=== PATIENT | female | born 1960 | race Caucasian/White ===

== ENCOUNTER 2021-03-15 19:57 | Observation (INO) | payer MEDICARE, MEDICAID, SELFPAY ==
[2021-03-15 20:00] VITALS: BP 160/107; PULSE 60; RESP 18; TEMP 37.1; O2SAT 97; BMI 27.3
[2021-03-15] MEDS: Ondansetron 4 MG/2 ML Vial IV (21:08)
[2021-03-15] MEDS: 0.9% Normal Saline 1,000 ML 1000 ML IV (21:08)
[2021-03-15 21:20] LABS: Absolute Lymphocyte Count 1.28 X10^3/uL (0.83-4.51); Absolute Neutrophil Count 10.6 X10^3/uL (2.0-7.7); Basophil# 0.06 X10^3/uL; Basophil% 0.5 % (0-1); Eosinophil# 0.01 X10^3/uL; Eosinophils% 0.1 % (0-5); Hematocrit 46.8 % (37-47); Hemoglobin 15.4 g/dL (12.0-15.0); Lymphocyte # 1.28 X10^3/ul (0.83-4.51); Lymphocyte % 10.2 % (19-41); Mean Corp Hgb Conc 32.9 g/dL (32-36); Mean Corpuscular Hgb 29.2 pg (27.0-32.0); Mean Corpuscular Volume 88.8 fL (81-99); Mean Platelet Vol. 10.1 fl (6.2-12.0); Monocyte# 0.55 X10^3/uL; Monocyte% 4.4 % (0-10); NRBC Flagged by Analyzer 0 % (0-5); Neutrophil # 10.62 X10^3/uL (2.7-7.7); Neutrophil % 84.1 % (47-70); Platelet Count 303 K/mm3 (150-450); RBC Distribution Width CV 12.6 % (11.6-14.6); RBC Distribution Width SD 41.1 fl (35.1-43.9); Red Blood Count 5.27 M/mm3 (4.2-5.4); White Blood Count 12.6 K/mm3 (4.4-11.0)
[2021-03-15 21:41] LABS: ALB/GLOB Ratio 1.2 RATIO (0.9-2.4); AST(SGOT) 12 U/L (15-37); Alanine Aminotransfer ALT/SGPT 18 U/L (13-56); Albumin, Serum 4.4 g/dL (3.2-5.0); Alkaline Phosphatase 113 U/L (45-117); Anion Gap 8 (5-15); BUN 13 mg/dL (7-18); BUN/Creat Ratio 14.1 RATIO (10-20); Calcium,Total 9.6 mg/dL (8.5-10.1); Chloride 108 mmol/L (98-107); Creatinine, Serum 0.92 mg/dL (0.55-1.02); EST Glomerular Filtration Rate 65 mL/min (>60); Est Glom Filt Rate - Afr Amer 79 mL/min (>60); Estimated Creatinine Clearance 50.15 ml/min; Globulin 3.8 g/dL (2.2-4.2); Glucose 125 mg/dL (74-106); Lipase 96 U/L (73-393); Potassium 3.6 mmol/L (3.5-5.1); Protein, Total 8.2 g/dL (6.4-8.2); Sodium Level 143 mmol/L (136-145)
--- NOTE | 2021-03-15 21:45 | RAD_ITS ---
INDICATION: Pain EXAMINATION/TECHNIQUE: X-RAY - XR Abdomen Series W/ Chest 1 View COMPARISON: None FINDINGS: --Chest: LINES/DEVICES: None. LUNGS: No consolidation, edema or effusion. No pneumothorax. MEDIASTINUM AND CARDIOVASCULAR STRUCTURES: Cardiac silhouette not enlarged. Central airways and mediastinal contour are unremarkable. BONES AND SOFT TISSUES: No acute findings. --Abdomen: BOWEL GAS PATTERN: Non-obstructive. Moderate amount retained stool in colon. FREE AIR: None visualized. ORGANOMEGALY: Not seen. CALCIFICATIONS: No abnormal calcifications observed. BONES AND SOFT TISSUES: No acute findings. RAD/Acute Abdomen Inc Chest IMPRESSION: No acute abnormalities. Moderate amount retained stool in colon. Electronically Signed: Mt Jackson MD at 22:24 EDT Tel , Service support ,
[2021-03-15] MEDS: Metoclopramide 10 MG/2 ML Vial 5 MG IV (22:23)
[2021-03-15] MEDS: Famotidine 200 MG/20 ML MDV 20 MG in 0.9% Normal Saline (Pres. free 8 ML 300 MG IV (22:23)
[2021-03-15 22:27] VITALS: BP 167/98; PULSE 81; RESP 18; O2SAT 98
[2021-03-16] VITALS (8 sets, daily range): BP systolic 143–174; BP diastolic 80–98; PULSE 60–81; RESP 16–18; TEMP 36.8–37.6; O2SAT 96–100; BMI 25.3
--- NOTE | 2021-03-16 00:03 | ED.VIS.GI ---
HPI HPI - GI History of Present Illness Chief Complaint: Nausea/Vomiting Narrative Narrative: Patient presenting for evaluation secondary to nausea and vomiting. Patient states over the course about the last 4 to 6 hours she has had a profuse onset of severe nausea and vomiting. She reports that this coincided with about 1 hour after she ate some coleslaw. She reports some crampy abdominal pain. No diarrhea. No fevers. No sick contacts. Patient denies any underlying history of bowel obstruction in the past, she does have a history of some abdominal surgery. Review of systems otherwise negative. [facility] Medical History High cholesterol HTN (hypertension) Home Medications amlodipine 10 mg PO DAILY 03/15/21 [History Last Taken Unknown] atorvastatin [Lipitor] 80 mg PO DAILY 03/15/21 [History Last Taken Unknown] lisinopril 20 mg PO DAILY 03/15/21 [History Last Taken Unknown] metoprolol succinate [Toprol XL] 100 mg PO DAILY 03/15/21 [History Last Taken Unknown] Allergy/AdvReac Type Severity Reaction Status Date / Time bacitracin AdvReac Rash Verified 03/15/21 20:03 [From Neosporin ([id number])] neomycin AdvReac Rash Verified 03/15/21 20:03 [From Neosporin ([id number])] polymyxin B AdvReac Rash Verified 03/15/21 20:03 [From Neosporin ([id number])] Surgical History Hx of cholecystectomy Social History Smoking Status: Current every day smoker tobacco type: cigarettes ROS ROS ED Constitutional Constitutional ED: Denies chills or fever(s) ENT ENT ED: Denies sore throat Cardiovascular Cardiovascular: Denies chest pain Respiratory/Chest Respiratory/Chest: Denies cough or dyspnea Gastrointestinal Gastrointestinal: Reports abdominal pain, nausea and vomiting Genitourinary Genitourinary ED: Denies dysuria, hematuria or urinary frequency Musculoskeletal Musculoskeletal: Denies myalgias Integumentary Denies rash Neurologic Neurologic: Denies paresthesias or weakness Psychiatric Psychiatric: Denies depression Endocrine Endocrinology: Denies polyuria Hematologic/Lymphatic Hematologic/Lymphatic: Denies easy bleeding or easy bruising Allergic/Immunologic Allergic/Immunologic ED: Denies urticaria EXAM Physical Exam Const Vital Signs: 03/15/21 20:00 03/15/21 22:27 Temperature 98.7 F Temperature Source Oral Pulse Rate 60 81 Respiratory Rate 18 18 Blood Pressure 160/107 H 167/98 H Blood Pressure Mean 124 121 Pulse Ox 97 98 Oxygen Delivery Method Room Air Room Air Positive well nourished and well developed General Appearance ED: well developed and NAD HEENT Reports dry mucous membranes normocephalic and atraumatic Mouth ED: Yes dry mucous membranes Mouth: dry mucous membranes Eyes EOMs intact bilaterally General Eye ED: Negative for pale conjunctiva or scleral icterus Neck no lymphadenopathy and supple Resp normal respiratory effort and clear to auscultation bilaterally Cardio regular rate, regular rhythm, no murmurs and peripheral pulses 2+ throughout GI non-tender, non-distended and no masses GI Narrative: No reproducible tenderness of the abdomen Palpation: soft; Negative for guarding, rigid or rebound tenderness present Back/Spine no CVA tenderness Extremity full ROM General Extremety ED: Negative for edema General Extremity: Negative for edema Neuro moves all extremities and no sensory deficits noted Sensorium / Orientation: alert, oriented to person, oriented to place and oriented to time Motor Exam: strength 5/5 throughout Psych mental status grossly normal Skin Rashes: no rashes MDM MDM MDM Narrative Medical decision making narrative: Patient presented with significant nausea and vomiting. She did state that she was having some yellow-colored emesis and had a history of some abdominal surgeries in the past I performed a abdominal series to rule out obstruction, by my personal interpretation as well as radiology this is negative for obstructive pattern. Patient has a leukocytosis of 12.6. Chemistry shows normal renal function no evidence of elevation of anion gap or acidosis. Lipase was normal. Patient continued to have persistent vomiting despite treatment with Zofran, Reglan, and Pepcid. She was given fluids. Patient requires admission at this point for continued fluids and antiemetics. This likely is from food poisoning. Lab Data Labs: Laboratory Results - last 24 hr 03/15/21 03/15/21 21:10 21:10 WBC 12.6 H RBC 5.27 Hgb 15.4 H Hct 46.8 MCV 88.8 MCH 29.2 MCHC 32.9 RDW Std Deviation 41.1 RDW Coeff of Jose 12.6 Plt Count 303 MPV 10.1 Immature Gran % (Auto) 0.700 Neut % (Auto) 84.1 H Lymph % (Auto) 10.2 L [place] % (Auto) 4.4 Eos % (Auto) 0.1 Baso % (Auto) 0.5 Absolute Neuts (auto) 10.6 H Absolute Lymphs (auto) 1.28 Nucleated RBC % 0 Sodium 143 Potassium 3.6 Chloride 108 H Carbon Dioxide 27.0 Anion Gap 8 BUN 13 Creatinine 0.92 Estim Creat Clear Calc 50.15 Est GFR (MDRD) Af Amer 79 Est GFR (MDRD) Non-Af 65 BUN/Creatinine Ratio 14.1 Glucose 125 H Calcium 9.6 Total Bilirubin 0.40 AST 12 L ALT 18 Alkaline Phosphatase 113 Total Protein 8.2 Albumin 4.4 Globulin 3.8 Albumin/Globulin Ratio 1.2 Lipase 96 Radiography Diagnostic Testing: Radiology Impression Acute Abdomen Series 03/15/21 21:45 IMPRESSION: No acute abnormalities. Moderate amount retained stool in colon. Electronically Signed: Mt Jackson MD at 22:24 EDT Tel , Service support , Discharge Plan Triage Chief Complaint: Nausea/Vomiting ED Provider: Joby Urias Dx/Rx/DC Orders Clinical Impression: Food poisoning, Intractable vomiting Primary Care Provider: NOT,DEFINED
--- NOTE | 2021-03-16 00:17 | PCM.HP.STD ---
HPI - General HPI Narrative FADY MEANS, is a 60 F who presents to the emergency room after acute onset of nausea and vomiting. Onset of symptoms began at 2:00 today after she had consumed old coleslaw at 1:00 PM. She is currently complaining of some mild urinary incontinence with her vomiting spells and is requesting nursing to assist her. No chest pain shortness of breath fevers or chills at this time. KUB reveals moderate amount of stool retained in the colon. CBC shows mild elevation white count otherwise labs are unremarkable. Patient will be admitted for observation overnight with IV fluid hydration and antiemetic medication. [facility] Medical History (Updated 03/16/21 @ 00:[address] Iain Guillen MD) High cholesterol HTN (hypertension) Home Medications amlodipine 10 mg PO DAILY 03/15/21 [History Last Taken Unknown] atorvastatin [Lipitor] 80 mg PO DAILY 03/15/21 [History Last Taken Unknown] lisinopril 20 mg PO DAILY 03/15/21 [History Last Taken Unknown] metoprolol succinate [Toprol XL] 100 mg PO DAILY 03/15/21 [History Last Taken Unknown] Allergy/AdvReac Type Severity Reaction Status Date / Time bacitracin AdvReac Rash Verified 03/15/21 20:03 [From Neosporin ([id number])] neomycin AdvReac Rash Verified 03/15/21 20:03 [From Neosporin ([id number])] polymyxin B AdvReac Rash Verified 03/15/21 20:03 [From Neosporin ([id number])] Surgical History (Updated 03/15/21 @ 20:04 by Millie Iniguez) Hx of cholecystectomy Social History Smoking Status: Current every day smoker tobacco type: cigarettes ROS Constitutional Constitutional: Reports fatigue; Denies fever(s) Eyes Eyes: Denies change in vision ENT HEENT: Denies loss taste/smell Cardiovascular Cardiovascular: Denies chest pain Respiratory/Chest Respiratory/Chest: Denies shortness of breath at rest Gastrointestinal Gastrointestinal: Reports abdominal pain, nausea and vomiting Genitourinary Genitourinary: Reports urinary incontinence and urinary urgency Musculoskeletal Musculoskeletal: Denies back pain Integumentary Integumentary: Denies jaundice Neurologic Neurologic: Denies abnormal speech Psychiatric Psychiatric: Denies anxiety Vital Signs Vital Signs Vital Signs: 03/15/21 20:00 03/15/21 22:27 Temperature 98.7 F Temperature Source Oral Pulse Rate 60 81 Respiratory Rate 18 18 Blood Pressure 160/107 H 167/98 H Blood Pressure Mean 124 121 Pulse Ox 97 98 Oxygen Delivery Method Room Air Room Air Weight Weight: 149 lb 11.102 oz Body Mass Index (BMI) 27.3 Physical Exam Const oriented x3 HEENT normocephalic and head/scalp atraumatic Eyes PERRL Neck supple Lymph Lymphatic: no lymphadenopathy noted Resp normal respiratory effort and clear to auscultation bilaterally Cardio regular rate, regular rhythm, S1 normal heart sound and S2 normal heart sound GI GI Narrative: generalized Palpation: tender Extremity General Extremity: Negative for edema Skin Lesions: no lesions Neuro Neuro Narrative: grossly intact Results Lab / Micro Data Result Diagrams: 03/15/21 21:10 03/15/21 21:10 Labs: Laboratory Results - last 24 hr 03/15/21 03/15/21 21:10 21:10 WBC 12.6 H RBC 5.27 Hgb 15.4 H Hct 46.8 MCV 88.8 MCH 29.2 MCHC 32.9 RDW Std Deviation 41.1 RDW Coeff of Jose 12.6 Plt Count 303 MPV 10.1 Immature Gran % (Auto) 0.700 Neut % (Auto) 84.1 H Lymph % (Auto) 10.[address] [place] % (Auto) 4.4 Eos % (Auto) 0.1 Baso % (Auto) 0.5 Absolute Neuts (auto) 10.6 H Absolute Lymphs (auto) 1.28 Nucleated RBC % 0 Sodium 143 Potassium 3.6 Chloride 108 H Carbon Dioxide 27.0 Anion Gap 8 BUN 13 Creatinine 0.92 Estim Creat Clear Calc 50.15 Est GFR (MDRD) Af Amer 79 Est GFR (MDRD) Non-Af 65 BUN/Creatinine Ratio 14.1 Glucose 125 H Calcium 9.6 Total Bilirubin 0.40 AST 12 L ALT 18 Alkaline Phosphatase 113 Total Protein 8.2 Albumin 4.4 Globulin 3.8 Albumin/Globulin Ratio 1.2 Lipase 96 Radiology Impression Acute Abdomen Series 03/15/21 21:45 IMPRESSION: No acute abnormalities. Moderate amount retained stool in colon. Electronically Signed: Mt Jackson MD at 22:24 EDT Tel , Service support , Assessment & Plan Assessment/Plan (1) Food poisoning: (2) HTN (hypertension): (3) High cholesterol: PLAN: Plan 1. Nausea and vomiting secondary to ingestion of spoiled food?admit patient for observation to general medical floor, Zofran 4 mg IV every 6 hours as needed nausea, IV normal saline at 125 cc/h, repeat CBC CMP in the morning 2. Hypertension?continue home medication 3. Hypercholesterolemia?continue statin medication 4. DVT prophylaxis?low molecular weight heparin Charges/Coding Visit Charges OBSV E&M: 59479 Initial observation care L2
--- NOTE | 2021-03-16 01:28 | ED.RN ---
UPDATED PT'S SISTER YUDITH WITH ADMISSION. [phone]
[2021-03-16] MEDS: 0.9% Normal Saline 1,000 ML 125 ML IV ×3 (02:16→18:19)
[2021-03-16] MEDS: proCHLORPERazine 10 MG/2 ML Vial 5 MG IV (02:16)
[2021-03-16 07:00] LABS: Absolute Lymphocyte Count 1.45 X10^3/uL (0.83-4.51); Absolute Neutrophil Count 10.4 X10^3/uL (2.0-7.7); Basophil# 0.05 X10^3/uL; Basophil% 0.4 % (0-1); Hematocrit 48.2 % (37-47); Hemoglobin 15.9 g/dL (12.0-15.0); Lymphocyte # 1.45 X10^3/ul (0.83-4.51); Lymphocyte % 11.4 % (19-41); Mean Corpuscular Hgb 28.9 pg (27.0-32.0); Mean Corpuscular Volume 87.6 fL (81-99); Mean Platelet Vol. 10.7 fl (6.2-12.0); Monocyte# 0.68 X10^3/uL; Monocyte% 5.4 % (0-10); NRBC Flagged by Analyzer 0 % (0-5); Neutrophil # 10.41 X10^3/uL (2.7-7.7); Neutrophil % 82.2 % (47-70); Platelet Count 312 K/mm3 (150-450); RBC Distribution Width CV 12.4 % (11.6-14.6); RBC Distribution Width SD 40.1 fl (35.1-43.9); White Blood Count 12.7 K/mm3 (4.4-11.0)
[2021-03-16 07:25] LABS: AST(SGOT) 16 U/L (15-37); Alanine Aminotransfer ALT/SGPT 18 U/L (13-56); Albumin, Serum 4.3 g/dL (3.2-5.0); Alkaline Phosphatase 122 U/L (45-117); Anion Gap 9 (5-15); BUN 8 mg/dL (7-18); BUN/Creat Ratio 13.7 RATIO (10-20); Calcium,Total 9.4 mg/dL (8.5-10.1); Chloride 105 mmol/L (98-107); Creatinine, Serum 0.58 mg/dL (0.55-1.02); EST Glomerular Filtration Rate 111 mL/min (>60); Est Glom Filt Rate - Afr Amer 134 mL/min (>60); Estimated Creatinine Clearance 79.54 ml/min; Globulin 4.2 g/dL (2.2-4.2); Glucose 138 mg/dL (74-106); Potassium 3.1 mmol/L (3.5-5.1); Protein, Total 8.5 g/dL (6.4-8.2); Sodium Level 138 mmol/L (136-145)
--- NOTE | 2021-03-16 07:33 | PN.HOSP_ITS ---
Subjective Subjective Patient is a 60-year-old lady with past medical history segment for hypertension dyslipidemia who presented with intractable nausea vomiting. She also did complain of back pain. Imaging studies with acute abdominal series obtained on admission was unremarkable admitted to regular nursing floor for symptomatic man agement Seen this a.m. complains of significant back pain ordered x-rays of the lumbosacral spine Objective Data Objective Data Vital Signs: Vital Signs Temp Pulse Resp BP Pulse Ox 98.3 F 73 18 156/80 H 100 03/16/21 02:00 03/16/21 02:00 03/16/21 02:00 03/16/21 02:19 03/16/21 02:00 Oxygen Delivery Method Room Air Weight: 62.8 kg Body Mass Index (BMI) 25.3 Intake & Output: Intake and Output for Last 24 Hours 03/14/21 03/15/21 03/16/21 23:59 23:59 23:59 Intake Total 1010 / 1010 Balance 1010 / 1010 Lab / Micro Data Result Diagrams: 03/16/21 05:50 03/16/21 05:50 Labs: Laboratory Results - last 24 hr 03/15/21 03/15/21 03/16/21 21:10 21:10 05:50 WBC 12.6 H 12.7 H RBC 5.27 5.50 H Hgb 15.4 H 15.9 H Hct 46.8 48.2 H MCV 88.8 87.6 MCH 29.2 28.9 MCHC 32.9 33.0 RDW Std Deviation 41.1 40.1 RDW Coeff of Jose 12.6 12.4 Plt Count 303 312 MPV 10.1 10.7 Immature Gran % (Auto) 0.700 0.600 Neut % (Auto) 84.1 H 82.2 H Lymph % (Auto) 10.2 L 11.4 L [place] % (Auto) 4.4 5.4 Eos % (Auto) 0.1 0.0 Baso % (Auto) 0.5 0.4 Absolute Neuts (auto) 10.6 H 10.4 H Absolute Lymphs (auto) 1.28 1.45 Nucleated RBC % 0 0 Sodium 143 Potassium 3.6 Chloride 108 H Carbon Dioxide 27.0 Anion Gap 8 BUN 13 Creatinine 0.92 Estim Creat Clear Calc 50.15 Est GFR (MDRD) Af Amer 79 Est GFR (MDRD) Non-Af 65 BUN/Creatinine Ratio 14.1 Glucose 125 H Calcium 9.6 Total Bilirubin 0.40 AST 12 L ALT 18 Alkaline Phosphatase 113 Total Protein 8.2 Albumin 4.4 Globulin 3.8 Albumin/Globulin Ratio 1.2 Lipase 96 03/16/21 05:50 WBC RBC Hgb Hct MCV MCH MCHC RDW Std Deviation RDW Coeff of Jose Plt Count MPV Immature Gran % (Auto) Neut % (Auto) Lymph % (Auto) [place] % (Auto) Eos % (Auto) Baso % (Auto) Absolute Neuts (auto) Absolute Lymphs (auto) Nucleated RBC % Sodium 138 Potassium 3.1 L Chloride 105 Carbon Dioxide 24.0 Anion Gap 9 BUN 8 Creatinine 0.58 Estim Creat Clear Calc 79.54 Est GFR (MDRD) Af Amer 134 Est GFR (MDRD) Non-Af 111 BUN/Creatinine Ratio 13.7 Glucose 138 H Calcium 9.4 Total Bilirubin 0.70 AST 16 ALT 18 Alkaline Phosphatase 122 H Total Protein 8.5 H Albumin 4.3 Globulin 4.2 Albumin/Globulin Ratio 1.0 Lipase Radiography Diagnostic Testing: Radiology Impression Acute Abdomen Series 03/15/21 21:45 IMPRESSION: No acute abnormalities. Moderate amount retained stool in colon. Electronically Signed: Mt Jackson MD at 22:24 EDT Tel , Service support , Physical Exam Narrative GENERAL: cooperative HEENT: Atraumatic; EYES; Anicteric, Normal Conjunctiva NECK; supple, normal thyroid, RESPIRATORY: Diminished to auscultation CARDIOVASCULAR: Regular S1 S2, GI: soft, normoactive bowel sounds, : No Renal angle tenderness; EXTREMITIES: No edema, no clubbing, MUSCULOSKELETAL: no muscle waisting NEURO: Awake; no lateralizing signs. SKIN: No Rash PSYCH; Flat affect Assessment & Plan Assessment/Plan (1) Food poisoning: (2) HTN (hypertension): (3) High cholesterol: PLAN: Patient is a 60-year-old lady with past medical history segment for hypertension dyslipidemia who presented with intractable nausea vomiting. She also did complain of back pain. Imaging studies with acute abdominal series obtained on admission was unremarkable admitted to regular nursing floor for symptomatic management 1. Intractable nausea vomiting ?Secondary to gastroenteritis from suspected food poisoning. Admitted to regular nursing floor for symptomatic management 2. Intractable back pain ?Requested for x-rays of the lumbosacral spine 3. Dyslipidemia -Patient is on statin therapy, continued at home dose 4. Hypertension - Blood pressure controlled, home medications continued with dose adjustment as needed 5. Hypokalemia -Corrected per protocol 6. DVT prophylaxis ?Low molecular weight heparin Charges/Coding Visit Charges OBSV E&M: 32212 Subsequent observation care L3
[2021-03-16] MEDS: Potassium Chloride Oral Tablet 20 MEQ PO ×2 (08:20→18:19)
[2021-03-16] MEDS: Potassium Chloride 10mEq/100mL 10 MEQ/100 ML IV.SOLN. 100 MEQ IV BOLUS ×4 (08:25→11:48)
[2021-03-16] MEDS: Metoprolol(XL)Succ 100 MG Tablet PO (10:39)
[2021-03-16] MEDS: Lisinopril 20 MG Tablet PO (10:39)
[2021-03-16] MEDS: amLODIPine 10 MG Tablet PO (10:39)
[2021-03-16] MEDS: Enoxaparin 40 MG/0.4 ML Syringe SC (10:39)
[2021-03-16] MEDS: 0.9% Saline Lock 10 ML Syringe IV (13:27)
--- NOTE | 2021-03-16 13:35 | RAD_ITS ---
STUDY: X-RAY - LUMBAR SPINE REASON FOR EXAM: Female, 60 years old. back pain TECHNIQUE: 5 view(s) of the lumbar spine were obtained. COMPARISON: None FINDINGS: Normal lumbar lordosis. There is no substantial scoliosis. There is a normal alignment of the vertebrae. Transitional anatomy of S1. There is diffuse demineralization with multi-level endplate spondylosis. Disc space narrowing in the lower lumbar levels. Moderate facet arthropathy at L4-L5 and L5-S1. No compression fracture. Cholecystectomy clips project in the right upper abdomen. RAD/L/S Spine Min 4 Views IMPRESSION: 1. No compression fracture. 2. Degenerative disc disease and facet arthropathy in the lower lumbar levels. Electronically Signed: Juan Diego Banks MD (Brooks) at 13:51 EDT , Service support ,
[2021-03-16] MEDS: Atorvastatin Calcium 80 MG Tablet PO (21:05)
[2021-03-17] MEDS: 0.9% Normal Saline 1,000 ML 125 ML IV (02:14)
[2021-03-17 02:15] VITALS: BP 162/88; PULSE 72; RESP 16; TEMP 36.8; O2SAT 96
[2021-03-17 05:38] LABS: Absolute Lymphocyte Count 2.58 X10^3/uL (0.83-4.51); Absolute Neutrophil Count 8.6 X10^3/uL (2.0-7.7); Basophil# 0.09 X10^3/uL; Basophil% 0.7 % (0-1); Eosinophil# 0.07 X10^3/uL; Eosinophils% 0.6 % (0-5); Hematocrit 51.6 % (37-47); Lymphocyte # 2.58 X10^3/ul (0.83-4.51); Lymphocyte % 20.7 % (19-41); Mean Corp Hgb Conc 32.9 g/dL (32-36); Mean Corpuscular Hgb 28.8 pg (27.0-32.0); Mean Corpuscular Volume 87.5 fL (81-99); Mean Platelet Vol. 10.1 fl (6.2-12.0); Monocyte# 1.11 X10^3/uL; Monocyte% 8.9 % (0-10); NRBC Flagged by Analyzer 0 % (0-5); Neutrophil # 8.55 X10^3/uL (2.7-7.7); Neutrophil % 68.7 % (47-70); Platelet Count 358 K/mm3 (150-450); RBC Distribution Width CV 12.5 % (11.6-14.6); White Blood Count 12.5 K/mm3 (4.4-11.0)
[2021-03-17 05:56] LABS: Anion Gap 6 (5-15); BUN 6 mg/dL (7-18); BUN/Creat Ratio 11.3 RATIO (10-20); Calcium,Total 9.1 mg/dL (8.5-10.1); Chloride 108 mmol/L (98-107); Creatinine, Serum 0.53 mg/dL (0.55-1.02); EST Glomerular Filtration Rate 123 mL/min (>60); Est Glom Filt Rate - Afr Amer 149 mL/min (>60); Estimated Creatinine Clearance 87.04 ml/min; Glucose 141 mg/dL (74-106); Magnesium 2.4 mg/dL (1.6-2.6); Potassium 3.8 mmol/L (3.5-5.1); Sodium Level 138 mmol/L (136-145)
[2021-03-17 08:15] VITALS: BP 172/93; PULSE 74; RESP 18; TEMP 36.8; O2SAT 95
[2021-03-17 08:20] VITALS: PULSE 72
[2021-03-17] MEDS: Lisinopril 20 MG Tablet PO (08:20)
[2021-03-17] MEDS: amLODIPine 10 MG Tablet PO (08:20)
[2021-03-17 08:21] VITALS: PULSE 72
[2021-03-17] MEDS: Metoprolol(XL)Succ 100 MG Tablet PO (08:21)
[2021-03-17] MEDS: Potassium Chloride Oral Tablet 20 MEQ PO (08:21)
--- NOTE | 2021-03-17 09:11 | DS.PCM_ITS ---
Providers Date of Admission: 03/16/21 Primary Care Physician: ELDA BRUCE Reason For Visit: NAUSEA AND VOMITING Diagnosis Discharge Diagnosis (1) Food poisoning: Status: Acute Code(s): A05.9 - Bacterial foodborne intoxication, unspecified (2) HTN (hypertension): Status: Chronic Code(s): I10 - Essential (primary) hypertension (3) High cholesterol: Status: Acute Code(s): E78.00 - Pure hypercholesterolemia, unspecified Medications at Discharge Home Medications amlodipine 10 mg PO DAILY 03/15/21 atorvastatin [Lipitor] 80 mg PO DAILY 03/15/21 metoprolol succinate [Toprol XL] 100 mg PO DAILY 03/15/21 hydrochlorothiazide 25 mg PO DAILY #30 tab 03/17/21 lisinopril 20 mg PO BIDCM #60 tab 03/17/21 ondansetron HCl [Zofran] 4 mg PO Q8H PRN #20 tab 03/17/21 potassium chloride [Klor-Con M20] 20 meq PO BIDCM #30 tab 03/17/21 Hospital Course Summary of Care Provided Minutes Spent on Discharge: 35 Hospital Course: Patient is a 60-year-old lady with past medical history segment for hypertension dyslipidemia who presented with intractable nausea vomiting. She also did complain of back pain. Imaging studies with acute abdominal series obtained on admission was unremarkable admitted to regular nursing floor for sy mptomatic management 1. Intractable nausea vomiting ?Secondary to gastroenteritis from suspected food poisoning. Admitted to regular nursing floor for symptomatic management ?Patient symptoms did improve 2. Intractable back pain ?Requested for x-rays of the lumbosacral spine 3. Dyslipidemia -Patient is on statin therapy, continued at home dose 4. Hypertension -Blood pressure control was not optimal adjusted patient antihypertensive regimen. She was on lisinopril 20 mg daily this was increased to 20 mg p.o. twice daily. Also added HCTZ 25 mg to her regimen on discharge. She was inst ructed to call his PCP to schedule a follow-up appointment within a week 5. Hypokalemia -Corrected per protocol 6. DVT prophylaxis ?Low molecular weight heparin Physical Exam Narrative GENERAL: cooperative HEENT: Atraumatic; EYES; Anicteric, Normal Conjunctiva NECK; supple, normal thyroid, RESPIRATORY: Diminished to auscultation CARDIOVASCULAR: Regular S1 S2, GI: soft, normoactive bowel sounds, : No Renal angle tenderness; EXTREMITIES: No edema, no clubbing, MUSCULOSKELETAL: no muscle waisting NEURO: Awake; no lateralizing signs. SKIN: No Rash PSYCH; Flat affect Weight / BMI Weight Weight: 62.8 kg Body Mass Index (BMI) 25.3 ABG / Lab / Microbiology Data Result Diagrams: 03/17/21 05:28 03/17/21 05:28 Laboratory: Laboratory Results - last 24 hr 03/17/21 03/17/21 05:28 05:28 WBC 12.5 H RBC 5.90 H Hgb 17.0 H Hct 51.6 H MCV 87.5 MCH 28.8 MCHC 32.9 RDW Std Deviation 40.0 RDW Coeff of Jose 12.5 Plt Count 358 MPV 10.1 Immature Gran % (Auto) 0.400 Neut % (Auto) 68.7 Lymph % (Auto) 20.7 [place] % (Auto) 8.9 Eos % (Auto) 0.6 Baso % (Auto) 0.7 Absolute Neuts (auto) 8.6 H Absolute Lymphs (auto) 2.58 Nucleated RBC % 0 Sodium 138 Potassium 3.8 Chloride 108 H Carbon Dioxide 24.0 Anion Gap 6 BUN 6 L Creatinine 0.53 L Estim Creat Clear Calc 87.04 Est GFR (MDRD) Af Amer 149 Est GFR (MDRD) Non-Af 123 BUN/Creatinine Ratio 11.3 Glucose 141 H Calcium 9.1 Magnesium 2.4 Radiography Diagnostic Testing: Radiology Impression Lumbar Spine X-Ray 03/16/21 13:35 IMPRESSION: 1. No compression fracture. 2. Degenerative disc disease and facet arthropathy in the lower lumbar levels. Electronically Signed: Juan Diego Banks MD (Bro[place]) at 13:51 EDT , Service support , D/C Instructions Discharge Diet: No restrictions Discharge Activity: Return to Normal Activity Call your doctor if you observe: Fever of 101 or Higher, Shortness of breath, Fainting spells and Chest pain Meaningful Use Info Meaningful Use Diagnoses (Choose all that apply): None applicable Discharge Plan Admission Admit Date/Time: 03/16/21 00:27 Primary Reason for Your Visit: Suspected gastritis Attending Provider: French Chester Discharge Orders/Prescriptions Prescriptions: New potassium chloride [Klor-Con M20] 20 mEq Tablet,Er Particles/Crystals 20 meq PO BIDCM Qty: 30 RF: 0 hydrochlorothiazide 25 mg tablet 25 mg PO DAILY Qty: 30 RF: 0 ondansetron HCl [Zofran] 4 mg tablet 4 mg PO Q8H PRN (Reason: nausea and vomiting) Qty: 20 RF: 0 Continued atorvastatin [Lipitor] 80 mg Tablet 80 mg PO DAILY RF: 0 metoprolol succinate [Toprol XL] 100 mg Tablet Extended Release 24 Hr 100 mg PO DAILY RF: 0 amlodipine 10 mg Tablet 10 mg PO DAILY RF: 0 Changed lisinopril 20 mg Tablet 20 mg PO BIDCM Qty: 60 RF: 0 Referrals / Follow Up: ELDA BRUCE [Other] - In 1 Week (For blood pressure check) Disposition Disposition (needs filled in before D/C Order can be placed): Home, self care Charges/Coding Visit Charges OBSV E&M: 55503 Observation care discharge
--- NOTE | 2021-03-17 09:40 | CASEMGMT ---
RIAZ MALAGON in to complete [place] form with patient. RN MANAS explained [place] form, patient voiced understanding. Patient signed [place] form and filed in chart. Patient provided copy of signed [place] form. Patient had no further questions or concerns at this time.
--- NOTE | 2021-03-17 10:11 | PCM.DC ---
Discharge Instructions Diet Discharge Diet: No restrictions Dressing / Incision Call your doctor if you observe: Fever of 101 or Higher, Shortness of breath, Fainting spells and Chest pain Follow Up Care Test Results: Test results from this visit will be discussed in further detail at your follow-up appointment, if applicable. Discharge Plan Admission Admit Date/Time: 03/16/21 00:27 Primary Reason for Your Visit: Suspected gastritis Attending Provider: French Chester Discharge Orders/Prescriptions Prescriptions: New potassium chloride [Klor-Con M20] 20 mEq Tablet,Er Particles/Crystals 20 meq PO BIDCM Qty: 30 RF: 0 hydrochlorothiazide 25 mg tablet 25 mg PO DAILY Qty: 30 RF: 0 ondansetron HCl [Zofran] 4 mg tablet 4 mg PO Q8H PRN (Reason: nausea and vomiting) Qty: 20 RF: 0 Continued atorvastatin [Lipitor] 80 mg Tablet 80 mg PO DAILY RF: 0 metoprolol succinate [Toprol XL] 100 mg Tablet Extended Release 24 Hr 100 mg PO DAILY RF: 0 amlodipine 10 mg Tablet 10 mg PO DAILY RF: 0 Changed lisinopril 20 mg Tablet 20 mg PO BIDCM Qty: 60 RF: 0 Referrals / Follow Up: ELDA BRUCE [Other] - In 1 Week (For blood pressure check) Disposition Disposition (needs filled in before D/C Order can be placed): Home, self care
[2021-03-17 10:50] VITALS: BP 160/96; PULSE 77; RESP 18; TEMP 37.1; O2SAT 97
== END 2021-03-17 11:10 | disposition home or self-care (01) ==
LOC: ED 03-16 00:06 → MS3 03-16 01:30
PROVIDERS: Admitting Provider Family Medicine; Emergency Provider Emergency Medicine; Visit Provider Internal Medicine
DX: A05.9 Bacterial foodborne intoxication, unspecified (principal); I10 Essential (primary) hypertension; Z79.899 Other long term (current) drug therapy; F17.210 Nicotine dependence, cigarettes, uncomplicated; E78.5 Hyperlipidemia, unspecified; M54.9 Dorsalgia, unspecified; E87.6 Hypokalemia
CPT/HCPCS: 36415; 72110; 74022; 80048; 80053; 83690; 83735; 85025; 96361; 96365; 96366; 96372; 96375; 99218; 99285; J7030; A4216; G0378; J2405; J3490